=== PATIENT | female | born 1955 | race Caucasian/White ===

== ENCOUNTER 2025-09-01 09:05 | Emergency (ER) | payer BC, MEDICARE ==
[~2025-09-01] VITALS: Ht 162.6 cm; Wt 74.8 kg
[2025-09-01 09:40] LABS: PLATELET COUNT (AUTO) 241 K/uL (179-408); RED BLOOD CELL COUNT(AUTO) 3.65 MIL/uL (3.63-4.92); RED CELL DISTRIBUTION WIDTH 13.5 % (12.3-17.7); WHITE BLOOD COUNT (AUTO) 4.1 K/uL (3.8-11.8)
[2025-09-01] MEDS: IV NS 1000 ML 1,000 ML IV ONE (09:47)
[2025-09-01 09:49] LABS: CREATININE 1.1 mg/dL (0.6-1.3); SODIUM SERUM 141 mmol/L (136-145); UREA NITROGEN, BLOOD 31 mg/dL (7-18)
[2025-09-01 09:55] LABS: ASPARTATE AMINOTRANSFERASE 14 U/L (15-37); TOTAL PROTEIN, SERUM 7.3 g/dL (6.4-8.2)
[2025-09-01 11:09] LABS: *BILIRUBIN,URIN NEGATIVE (NEGATIVE); *BLOOD, URINE NEGATIVE (NEGATIVE); *CLARITY,URINE CLEAR (CLEAR); *COLOR,URINE YELLOW (YELLOW); *KETONES,URINE NEGATIVE (NEGATIVE); *PROTEIN,URINE NEGATIVE (NEGATIVE); *UROBILINOGEN,URINE 0.2 E.U./dl (NORMAL); LEUKOCYTE ESTERASE ,URINE NEGATIVE (NEGATIVE); NITRITE, URINE NEGATIVE (NEGATIVE); UGLUCOSE NEGATIVE (NEGATIVE)
[2025-09-01 12:10] VITALS: BP 129/78; O2SAT 98
== END 2025-09-01 12:20 | disposition home or self-care (01) ==
LOC: ER 09:05
DX: R51.9 Headache, unspecified (principal); E78.5 Hyperlipidemia, unspecified; F12.11 Cannabis abuse, in remission; I48.91 Unspecified atrial fibrillation; Z79.01 Long term (current) use of anticoagulants; Z86.73 Personal history of transient ischemic attack (TIA), and cerebral infarction without residual deficits; Z88.2 Allergy status to sulfonamides; Z88.5 Allergy status to narcotic agent
CPT/HCPCS: 99285; 96360; 70450; 71045; 96361; 80076; 80048; 81003; 83880; 85025; 85730; 84484 ×2; 36415; 93005; J7040; A4606; A4663